=== PATIENT | male | born 1945 | race Caucasian/White ===

== ENCOUNTER 2016-12-26 14:55 | Emergency (ER) | payer OTHER ==
--- NOTE | 2016-12-26 15:55 | DIAGNOSTIC IMAGING REPORT ---
PROCEDURE: XR CHEST 2 VIEW INDICATION: FEVER TECHNIQUE: PA and lateral views. COMPARISON: Chest 05/16/2015 FINDINGS: Lungs are clear. Sternotomy wires. Heart and mediastinum are normal. Thorax is normal. IMPRESSION: 1. Negative chest.
--- NOTE | 2016-12-26 17:18 | ED CLINICAL REPORT ---
Clinical Report - Physicians/Mid Levels [facility] [address] [place] [address] 12/26/2016 14:55 Patient: SULEMAN OLVERA Time Seen: 15:22 Dec 26 2016. Arrived- By private vehicle. Historian- patient. HISTORY OF PRESENT ILLNESS Chief Complaint: COUGH and "FLU". 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 The patient has had a cough. (presents with flulike symptoms over the last 5 days, recently prescribed Tamiflu, as his was seen in the emergency department, was diagnosed with the flu. Patient is a history of Parkinson's, currently off medications. 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 REVIEW OF SYSTEMS No headache or diarrhea. All systems otherwise negative, except as recorded above. PAST HISTORY Problems: Sick Contact. Fractured Phalanx (Toe). Laceration. Vasovagal Syncope. Fall. Arthritis. Parkinson's Disease. Diabetes Mellitus. Additional Surgeries: Cholecystectomy. Open Heart [10/2016]. Septum surgery. Medications: Tamiflu Oral 75 mg, daily. Losartan Potassium Oral (Tablet 50 mg). Naproxen Oral 250 mg. Simvastatin Oral 80 mg. TraZODone HCl Oral 50 mg. Allopurinol Oral 300 mg. Aspirin Oral (Tablet 325 mg). Citalopram Hydrobromide Oral (Tablet 20 mg). Allergies: Bees. ADDITIONAL NOTES The nursing notes have been reviewed. PHYSICAL EXAM Vital Signs: 12/26/2016 15:13 BP: 131/91. HR: 66. RR: 16. O2 saturation: 100%. Temp: 98.6 F. Appearance: Alert. No acute distress. Eyes: Eyes normal inspection. Neck: Normal inspection. Respiratory: No respiratory distress. Breath sounds normal. No accessory muscle use. Skin: Skin warm. Normal skin color. LABS, X-RAYS, AND EKG Chest X-ray: (IMPRESSION: 1. Negative chest. Electronically Final signed by:Jerry White MD 12/26/2016 3:58:42 PM). Laboratory Tests: CBC w Diff: (BERTRAND: 12/26/2016 16:30) ( MsgRcvd 12/26/2016 16:50) Final results Test Result Flag Units (Reference) WHITE BLOOD COUNT 7.9 K/uL (4.5-11.5) RED BLOOD COUNT 5.31 M/uL (4.50-5.90) HEMOGLOBIN 16.2 gm/dL (13.5-17.5) HEMATOCRIT 48.0 % (41.0-53.0) MEAN CELL VOLUME 90 fL (80-100) MEAN CORPUSCULAR HGB 31 pg (26-34) MEAN CORPUSCULAR HGB CONC 34 g/dL (31-37) RED CELL DISTRIBUTION WIDTH 14.3 % (11.6-14.8) PLATELET COUNT 198 K/uL (150-400) NEUTROPHIL % 64.8 % (50-75) LYMPH % 22.1 L % (25-40) MONO % 9.4 % (3-14) EOSINOPHIL % 3.3 % (0-4) BASOPHIL % 0.4 % (0-2) BMP: (BERTRAND: 12/26/2016 16:30) ( MsgRcvd 12/26/2016 17:00) Final results Test Result Flag Units (Reference) GLUCOSE 204 H mg/dL (70-110) BUN 24 H mg/dL (7-18) CREATININE 1.1 mg/dL (0.6-1.3) Estimated GFR >60 mL/min Estimated GFR- >60 mL/min Note: Persistent reduction over 3 months in eGFR<60 mL/min/1.73 m2 defines CKD. Patients with eGFR values>=60 mL/min/1.73 m2 may also have CKD if evidence ofpersistent proteinuria. Additional information may be foundat www.kidney.org. SODIUM 140 mmol/L (136-145) POTASSIUM 4.4 mmol/L (3.5-5.1) CHLORIDE 103 mmol/L (98-107) CARBON DIOXIDE 28 mmol/L (21-32) CALCIUM 8.8 mg/dL (8.5-10.1) . PROGRESS AND PROCEDURES Course of Care: Patient here in the ER with no fevers, clear chest x-ray, lungs clear. Patient with recent influenza symptoms. Pt to f/u outpatient. NOn septic in the er. Normacardic, afebrile. 12/26/2016 17:19 BP: 114/67. HR: 71. RR: 14. O2 saturation: 99%. Temp: 98.1 F. Patient is stable. Symptoms better. Patient/family counseled. Disposition: Discharged. CLINICAL IMPRESSION Influenza. INSTRUCTIONS Alternate Tylenol (Acetaminophen) and Motrin (Ibuprofen) for fever control. Take according to label instructions. Do not work for seven days. Drink plenty of fluids. (continue taking your medicaiton). Follow-up: Follow up with your doctor Monday. (Electronically signed by Linda Dan P.A.-C 12/26/2016 18:00)
--- NOTE | 2016-12-26 17:18 | ED ORDER SUMMARY ---
..... Patient: SULEMAN OLVERA OrderSheet [facility] VisitID: [id number] [place] [address] 71y, M Registration Date/Time: 12/26/2016 ORDER SHEET Weight: 104.3 kg (stated) Allergies: Bees GENERAL ORDERS: Chest 2V Urgent (15:25 12/26/2016 EKoroleva P.A.-C) (16:00 JBoardley R.N.) CBC w Diff Urgent (16:21 12/26/2016 EKoroleva P.A.-C) (16:32 JBoardley R.N.) BMP Urgent (16:21 12/26/2016 EKoroleva P.A.-C) (16:32 JBoardley R.N.) MEDICATION ORDERS: IV FLUIDS: IV NS : initial bolus 500 mL (1000 mL/hr), then 100 mL/hr for X1 (NOW); Mingo (16:20 12/26/2016 EKoroleva P.A.-C) (Ack 16:21 JBoardley R.N.) (16:33 JBoardley R.N.) ORDER SHEET NOTES: [Electronically signed by Gilbert Wilcox R.N. (17:42 12/26/2016)] [Electronically signed by Linda Dan P.A.-C (17:59 12/26/2016)] [Electronically locked/signed by Gilbert Wilcox R.N. (17:42 12/26/2016)]
--- NOTE | 2016-12-26 17:18 | ED CLINICAL REPORT ---
Clinical Report - Physicians/Mid Levels [facility] [address] [place] [address] 12/26/2016 14:55 Patient: SULEMAN OLVERA Time Seen: 15:22 Dec 26 2016. Arrived- By private vehicle. Historian- patient. HISTORY OF PRESENT ILLNESS Chief Complaint: COUGH and "FLU". 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 The patient has had a cough. (presents with flulike symptoms over the last 5 days, recently prescribed Tamiflu, as his was seen in the emergency department, was diagnosed with the flu. Patient is a history of Parkinson's, currently off medications. 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 REVIEW OF SYSTEMS No headache or diarrhea. All systems otherwise negative, except as recorded above. PAST HISTORY Problems: Sick Contact. Fractured Phalanx (Toe). Laceration. Vasovagal Syncope. Fall. Arthritis. Parkinson's Disease. Diabetes Mellitus. Additional Surgeries: Cholecystectomy. Open Heart [10/2016]. Septum surgery. Medications: Tamiflu Oral 75 mg, daily. Losartan Potassium Oral (Tablet 50 mg). Naproxen Oral 250 mg. Simvastatin Oral 80 mg. TraZODone HCl Oral 50 mg. Allopurinol Oral 300 mg. Aspirin Oral (Tablet 325 mg). Citalopram Hydrobromide Oral (Tablet 20 mg). Allergies: Bees. ADDITIONAL NOTES The nursing notes have been reviewed. PHYSICAL EXAM Vital Signs: 12/26/2016 15:13 BP: 131/91. HR: 66. RR: 16. O2 saturation: 100%. Temp: 98.6 F. Appearance: Alert. No acute distress. Eyes: Eyes normal inspection. Neck: Normal inspection. Respiratory: No respiratory distress. Breath sounds normal. No accessory muscle use. Skin: Skin warm. Normal skin color. LABS, X-RAYS, AND EKG Chest X-ray: (IMPRESSION: 1. Negative chest. Electronically Final signed by:Jerry White MD 12/26/2016 3:58:42 PM). Laboratory Tests: CBC w Diff: (BERTRAND: 12/26/2016 16:30) ( MsgRcvd 12/26/2016 16:50) Final results Test Result Flag Units (Reference) WHITE BLOOD COUNT 7.9 K/uL (4.5-11.5) RED BLOOD COUNT 5.31 M/uL (4.50-5.90) HEMOGLOBIN 16.2 gm/dL (13.5-17.5) HEMATOCRIT 48.0 % (41.0-53.0) MEAN CELL VOLUME 90 fL (80-100) MEAN CORPUSCULAR HGB 31 pg (26-34) MEAN CORPUSCULAR HGB CONC 34 g/dL (31-37) RED CELL DISTRIBUTION WIDTH 14.3 % (11.6-14.8) PLATELET COUNT 198 K/uL (150-400) NEUTROPHIL % 64.8 % (50-75) LYMPH % 22.1 L % (25-40) MONO % 9.4 % (3-14) EOSINOPHIL % 3.3 % (0-4) BASOPHIL % 0.4 % (0-2) BMP: (BERTRAND: 12/26/2016 16:30) ( MsgRcvd 12/26/2016 17:00) Final results Test Result Flag Units (Reference) GLUCOSE 204 H mg/dL (70-110) BUN 24 H mg/dL (7-18) CREATININE 1.1 mg/dL (0.6-1.3) Estimated GFR >60 mL/min Estimated GFR- >60 mL/min Note: Persistent reduction over 3 months in eGFR<60 mL/min/1.73 m2 defines CKD. Patients with eGFR values>=60 mL/min/1.73 m2 may also have CKD if evidence ofpersistent proteinuria. Additional information may be foundat www.kidney.org. SODIUM 140 mmol/L (136-145) POTASSIUM 4.4 mmol/L (3.5-5.1) CHLORIDE 103 mmol/L (98-107) CARBON DIOXIDE 28 mmol/L (21-32) CALCIUM 8.8 mg/dL (8.5-10.1) . PROGRESS AND PROCEDURES Course of Care: Patient here in the ER with no fevers, clear chest x-ray, lungs clear. Patient with recent influenza symptoms. Pt to f/u outpatient. NOn septic in the er. Normacardic, afebrile. 12/26/2016 17:19 BP: 114/67. HR: 71. RR: 14. O2 saturation: 99%. Temp: 98.1 F. Patient is stable. Symptoms better. Patient/family counseled. Disposition: Discharged. CLINICAL IMPRESSION Influenza. INSTRUCTIONS Alternate Tylenol (Acetaminophen) and Motrin (Ibuprofen) for fever control. Take according to label instructions. Do not work for seven days. Drink plenty of fluids. (continue taking your medicaiton). Follow-up: Follow up with your doctor Monday. (Electronically signed by Linda Dan P.A.-C 12/26/2016 18:00)
--- NOTE | 2016-12-26 17:18 | ED ORDER SUMMARY ---
..... Patient: SULEMAN OLVERA OrderSheet [facility] VisitID: [id number] [place] [address] 71y, M Registration Date/Time: 12/26/2016 ORDER SHEET Weight: 104.3 kg (stated) Allergies: Bees GENERAL ORDERS: Chest 2V Urgent (15:25 12/26/2016 EKoroleva P.A.-C) (16:00 JBoardley R.N.) CBC w Diff Urgent (16:21 12/26/2016 EKoroleva P.A.-C) (16:32 JBoardley R.N.) BMP Urgent (16:21 12/26/2016 EKoroleva P.A.-C) (16:32 JBoardley R.N.) MEDICATION ORDERS: IV FLUIDS: IV NS : initial bolus 500 mL (1000 mL/hr), then 100 mL/hr for X1 (NOW); Mingo (16:20 12/26/2016 EKoroleva P.A.-C) (Ack 16:21 JBoardley R.N.) (16:33 JBoardley R.N.) ORDER SHEET NOTES: [Electronically signed by Gilbert Wilcox R.N. (17:42 12/26/2016)] [Electronically signed by Linda Dan P.A.-C (17:59 12/26/2016)] [Electronically locked/signed by Gilbert Wilcox R.N. (17:42 12/26/2016)]
--- NOTE | 2016-12-26 17:18 | ED NURSING NOTES ---
Clinical Report - Nurs[facility] [address] [place] [address] 12/26/2016 14:55 Patient: SULEMAN OLVERA TRIAGE Triage time 15:14. Acuity: LEVEL 4. Chief Complaint: "FLU" and COUGH and WHEEZING. 15:14 12/26/16. 15:14 12/26/16. SEPSIS SCREEN: Sepsis Screen. Negative (no infection suspected/documented). --15:24 Gilbert Wilcox R.N. 15:13 12/26/16. BP: 131/91. HR: 66. RR: 16. O2 saturation: 100% on room air. Temp: 98.6 F (oral). --15:24 Gilbert Wilcox R.N. Weight: 104.3 kg stated. Height/Length: 68 inches Per Patient. BMI: 35. --15:13 Gilbert Wilcox R.N. Medications Allopurinol Oral 300 mg, daily. Aspirin Oral (Tablet 325 mg). Citalopram Hydrobromide Oral (Tablet 20 mg). --15:17 Gilbert Wilcox R.N. Losartan Potassium Oral (Tablet 50 mg). Naproxen Oral 250 mg. TraZODone HCl Oral 50 mg. --15:17 Gilbert Wilcox R.N. Tamiflu Oral 75 mg, daily. --15:18 Gilbert Wilcox R.N. Gabapentin Oral. --15:22 Gilbert Wilcox R.N. Statins Support Oral. --15:25 Gilbert Wilcox R.N. The following entry was struck by Gilbert Wilcox R.N., 15:23 (12/26/16) Reason - other. <<STRICKEN ENTRY-- Simvastatin Oral 80 mg. --15:17 Gilbert Wilcox R.N. --END STRIKE>> The following entry was struck and corrected by Gilbert Wilcox R.N., 15:22 (12/26/16) Reason for correction - other(correction). <<STRICKEN ENTRY-- Allopurinol Oral 300 mg. --15:17 Gilbert Wilcox R.N. --END STRIKE>>. Medication/allergy information source: the patient. --15:24 Gilbert Wilcox R.N. Allergies Bees. --15:17 Gilbert Wilcox R.N. History Arrived by private vehicle. Historian: patient. Primary physician ([facility] in [place]). 15:14 12/26/16. Onset. (1 week ago). 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 PAST MEDICAL HX: Immunizations: up-to-date. SOCIAL HX: Never smoker. No alcohol use or drug use. He has had contact with a sick spouse. FALL RISK ASSESSMENT: Fall risk assessment completed. No fall risk identified. NUTRITIONAL RISK ASSESSMENT: The nutritional risk assessment revealed no deficiencies. FUNCTIONAL ASSESSMENT: Functional assessment: no impairments noted. LEARNING NEEDS ASSESSMENT: The learning needs assessment revealed no barriers. SKIN INTEGRITY ASSESSMENT: Skin integrity risk assessment completed. No skin integrity risk identified. --15:24 Gilbert Wilcox R.N. PROBLEMS: Fractured Phalanx (Toe). Laceration. Vasovagal Syncope. Fall. Arthritis. Parkinson's Disease. Diabetes Mellitus. --15:17 Gilbert Wilcox R.N. Myocardial Infarction. --15:23 Gilbert Wilcox R.N. ADDITIONAL SURGERIES: Cholecystectomy. Septum surgery. --15:18 Gilbert Wilcox R.N. Open Heart [10/2015]. --16:14 Gilbert Wilcox R.N. The following entry was struck by Gilbert Wilcox R.N., 16:14 <<STRICKEN ENTRY-- Open Heart [10/2016]. --15:18 Gilbert Wilcox R.N. --END STRIKE>>. Assessment 15:14 12/26/16. --15:24 Gilbert Wilcox R.N. Interventions 15:14 12/26/16. 15:14 12/26/16. ID and allergy band on patient. Precautions initiated (pt masked). To treatment room. --15:24 Gilbert Wilcox R.N. PHYSICAL ASSESSMENT 15:16 12/26/16. Ambulatory to room. GENERAL / NEURO / PSYCH: Alert. Oriented X 4. RESPIRATORY: Respirations not labored. CVS: Capillary refill less than 2 seconds. SKIN: Skin is warm and dry. --15:16 Gilbert Wilcox R.N. 15:19 12/26/16. RESPIRATORY: Expiratory wheezes present. --15:19 Gilbert Wilcox R.N. NURSING PROGRESS NOTES 15:16 12/26/16. The plan of care for this patient has been created. Pulse oximeter applied. Patient gowned. Head of bed elevated. Two patient identifiers checked. Call light placed in reach. Side rails up x 2. Bed placed in lowest position. Brakes of bed on. Brakes of chair on. --15:16 Gilbert Wilcox R.N. 15:16 12/26/16. Patient ready for evaluation- chart flagged and notification provided. --15:16 Gilbert Wilcox R.N. 15:33 12/26/16. Patient transported to radiology by stretcher with tech. --15:34 Aranza Tejada 16:12/26/16. ( Chest x-ray completed). --16:01 Gilbert Wilcox R.N. 16:13 12/26/16. BP: 132/89. HR: 79. RR: 12. O2 saturation: 100% on room air. --16:13 Gilbert Wilcox R.N. 16:13 12/26/16. --16:13 Gilbert Wilcox R.N. 16:28 12/26/2016 Site #1 started via IV in the right hand with an 20g angiocath, with aseptic technique and good blood return; one attempt. Blood drawn: rainbow set. Labeled in the presence of the patient and sent to the lab. Saline lock flushed with 10 mL saline. --16:33 Gilbert Wilcox R.N. 16:33 12/26/2016 Started bag #1 500 mL IV Fluids IV NS (Saline); at 500 mL/hr over 1 hour(s) via site #1. Allergies verified and confirmed 5 rights. IV patency established. IV site checked: no pain, redness, or swelling. IV flushed thoroughly pre- and post-medication administration. Completed per protocol. --16:33 Gilbert Wilcox R.N. 17:14 12/26/2016 IV Fluids IV NS Discontinued: bag #1 infused. Total amount infused: 500 mL. IV patency established. IV site checked: no pain, redness, or swelling. IV flushed thoroughly. --17:20 Gilbert Wilcox R.N. DISPOSITION / DISCHARGE 17:19 12/26/2016 Site #1 removed upon discharge. Catheter intact. --17:19 Gilbert Wilcox R.N. 17:20 12/26/16. Condition at departure: improved. The goals identified in the patient's plan of care were met. No learning barriers present. Discharge instructions provided and reviewed with the patient. Reviewed warnings. Reviewed medication(s). Treatments reviewed. FALL RISK ASSESSMENT: Fall risk assessment completed. No fall risk identified. --17:20 Gilbert Wilcox R.N. 17:19 12/26/16. BP: 114/67. HR: 71. RR: 14. O2 saturation: 99% on room air. Temp: 98.1 F (oral). --17:20 Gilbert Wilcox R.N. 17:20 12/26/16. Patient verbalized understanding. Written instructions provided in Belgian. The patient was discharged by the physician mental health assistant. He was discharged home. He left the Emergency Department ambulatory. Patient driving. --17:20 Gilbert Wilcox R.N. 17:20 12/26/16. Departure time: 17:20. --17:20 Gilbert Wilcox R.N. Locked/Released at 12/26/2016 17:42 by Gilbert Wilcox R.N.
--- NOTE | 2016-12-26 17:18 | ED NURSING NOTES ---
Clinical Report - Nurses [facility] [address] [place] [address] 12/26/2016 14:55 Patient: SULEMAN OLVERA TRIAGE Triage time 15:14. Acuity: LEVEL 4. Chief Complaint: "FLU" and COUGH and WHEEZING. 15:14 12/26/16. 15:14 12/26/16. SEPSIS SCREEN: Sepsis Screen. Negative (no infection suspected/documented). --15:24 Gilbert Wilcox R.N. 15:13 12/26/16. BP: 131/91. HR: 66. RR: 16. O2 saturation: 100% on room air. Temp: 98.6 F (oral). --15:24 Gilbert Wilcox R.N. Weight: 104.3 kg stated. Height/Length: 68 inches Per Patient. BMI: 35. --15:13 Gilbert Wilcox R.N. Medications Allopurinol Oral 300 mg, daily. Aspirin Oral (Tablet 325 mg). Citalopram Hydrobromide Oral (Tablet 20 mg). --15:17 Gilbert Wilcox R.N. Losartan Potassium Oral (Tablet 50 mg). Naproxen Oral 250 mg. TraZODone HCl Oral 50 mg. --15:17 Gilbert Wilcox R.N. Tamiflu Oral 75 mg, daily. --15:18 Gilbert Wilcox R.N. Gabapentin Oral. --15:22 Gilbert Wilcox R.N. Statins Support Oral. --15:25 Gilbert Wilcox R.N. The following entry was struck by Gilbert Wilcox R.N., 15:23 (12/26/16) Reason - other. <<STRICKEN ENTRY-- Simvastatin Oral 80 mg. --15:17 Gilbert Wilcox R.N. --END STRIKE>> The following entry was struck and corrected by Gilbert Wilcox R.N., 15:22 (12/26/16) Reason for correction - other(correction). <<STRICKEN ENTRY-- Allopurinol Oral 300 mg. --15:17 Gilbert Wilcox R.N. --END STRIKE>>. Medication/allergy information source: the patient. --15:24 Gilbert Wilcox R.N. Allergies Bees. --15:17 Gilbert Wilcox R.N. History Arrived by private vehicle. Historian: patient. Primary physician ([facility] in [place]). 15:14 12/26/16. Onset. (1 week ago). 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 PAST MEDICAL HX: Immunizations: up-to-date. SOCIAL HX: Never smoker. No alcohol use or drug use. He has had contact with a sick spouse. FALL RISK ASSESSMENT: Fall risk assessment completed. No fall risk identified. NUTRITIONAL RISK ASSESSMENT: The nutritional risk assessment revealed no deficiencies. FUNCTIONAL ASSESSMENT: Functional assessment: no impairments noted. LEARNING NEEDS ASSESSMENT: The learning needs assessment revealed no barriers. SKIN INTEGRITY ASSESSMENT: Skin integrity risk assessment completed. No skin integrity risk identified. --15:24 Gilbert Wilcox R.N. PROBLEMS: Fractured Phalanx (Toe). Laceration. Vasovagal Syncope. Fall. Arthritis. Parkinson's Disease. Diabetes Mellitus. --15:17 Gilbert Wilcox R.N. Myocardial Infarction. --15:23 Gilbert Wilcox R.N. ADDITIONAL SURGERIES: Cholecystectomy. Septum surgery. --15:18 Gilbert Wilcox R.N. Open Heart [10/2015]. --16:14 Gilbert Wilcox R.N. The following entry was struck by Gilbert Wilcox R.N., 16:14 <<STRICKEN ENTRY-- Open Heart [10/2016]. --15:18 Gilbert Wilcox R.N. --END STRIKE>>. Assessment 15:14 12/26/16. --15:24 Gilbert Wilcox R.N. Interventions 15:14 12/26/16. 15:14 12/26/16. ID and allergy band on patient. Precautions initiated (pt masked). To treatment room. --15:24 Gilbert Wilcox R.N. PHYSICAL ASSESSMENT 15:16 12/26/16. Ambulatory to room. GENERAL / NEURO / PSYCH: Alert. Oriented X 4. RESPIRATORY: Respirations not labored. CVS: Capillary refill less than 2 seconds. SKIN: Skin is warm and dry. --15:16 Gilbert Wilcox R.N. 15:19 12/26/16. RESPIRATORY: Expiratory wheezes present. --15:19 Gilbert Wilcox R.N. NURSING PROGRESS NOTES 15:16 12/26/16. The plan of care for this patient has been created. Pulse oximeter applied. Patient gowned. Head of bed elevated. Two patient identifiers checked. Call light placed in reach. Side rails up x 2. Bed placed in lowest position. Brakes of bed on. Brakes of chair on. --15:16 Gilbert Wilcox R.N. 15:16 12/26/16. Patient ready for evaluation- chart flagged and notification provided. --15:16 Gilbert Wilcox R.N. 15:33 12/26/16. Patient transported to radiology by stretcher with tech. --15:34 Aranza Tejada 16:12/26/16. ( Chest x-ray completed). --16:01 Gilbert Wilcox R.N. 16:13 12/26/16. BP: 132/89. HR: 79. RR: 12. O2 saturation: 100% on room air. --16:13 Gilbert Wilcox R.N. 16:13 12/26/16. --16:13 Gilbert Wilcox R.N. 16:28 12/26/2016 Site #1 started via IV in the right hand with an 20g angiocath, with aseptic technique and good blood return; one attempt. Blood drawn: rainbow set. Labeled in the presence of the patient and sent to the lab. Saline lock flushed with 10 mL saline. --16:33 Gilbert Wilcox R.N. 16:33 12/26/2016 Started bag #1 500 mL IV Fluids IV NS (Saline); at 500 mL/hr over 1 hour(s) via site #1. Allergies verified and confirmed 5 rights. IV patency established. IV site checked: no pain, redness, or swelling. IV flushed thoroughly pre- and post-medication administration. Completed per protocol. --16:33 Gilbert Wilcox R.N. 17:14 12/26/2016 IV Fluids IV NS Discontinued: bag #1 infused. Total amount infused: 500 mL. IV patency established. IV site checked: no pain, redness, or swelling. IV flushed thoroughly. --17:20 Gilbert Wilcox R.N. DISPOSITION / DISCHARGE 17:19 12/26/2016 Site #1 removed upon discharge. Catheter intact. --17:19 Gilbert Wilcox R.N. 17:20 12/26/16. Condition at departure: improved. The goals identified in the patient's plan of care were met. No learning barriers present. Discharge instructions provided and reviewed with the patient. Reviewed warnings. Reviewed medication(s). Treatments reviewed. FALL RISK ASSESSMENT: Fall risk assessment completed. No fall risk identified. --17:20 Gilbert Wilcox R.N. 17:19 12/26/16. BP: 114/67. HR: 71. RR: 14. O2 saturation: 99% on room air. Temp: 98.1 F (oral). --17:20 Gilbert Wilcox R.N. 17:20 12/26/16. Patient verbalized understanding. Written instructions provided in Puerto Rican. The patient was discharged by the physician metal forger's assistant. He was discharged home. He left the Emergency Department ambulatory. Patient driving. --17:20 Gilbert Wilcox R.N. 17:20 12/26/16. Departure time: 17:20. --17:20 Gilbert Wilcox R.N. Locked/Released at 12/26/2016 17:42 by Gilbert Wilcox R.N.
--- NOTE | 2016-12-26 18:00 | ED MAR SUMMARY ---
..... Medication Administration Record [facility] [address] [place] [address] Patient: SULEMAN OLVERA Visit ID: [id number] 71y, M Weight: 104.3 kg Height/Length: 68 in BMI: 35 ALLERGIES: Bees Start 16:33 12/26/2016 Gilbert Wilcox R.N., Stop 17:14 12/26/2016 Gilbert Wilcox R.N. Medication Administered: IV NS (SALINE), Dose: IV Fluids over 1 hour(s), Rate: 500 mL/hr, Dispensed: 500 mL bag, Site: #1 right hand. Medication Ordered: IV NS : initial bolus 500 mL (1000 mL/hr), then 100 mL/hr for X1 (NOW); Mingo.
--- NOTE | 2016-12-26 18:00 | ED MED RECONCILIATION SUMMARY ---
Patient: SULEMAN OLVERA Medication Reconciliation Report [facility] VisitID: [id number] [address] [place] [address] 71y, M Registration Date/Time: 12/26/2016 Weight: 104.3 kg Height/Length: 68 in. BMI: 35.0 ALLERGIES: Bees The patient's Home Medications are listed below: THE FOLLOWING MEDICATIONS NEED TO BE RECONCILED: Allopurinol Oral 300 mg, daily Aspirin Oral (325 mg) Citalopram Hydrobromide Oral (20 mg) Gabapentin Oral Losartan Potassium Oral (50 mg) Naproxen Oral 250 mg Statins Support Oral Tamiflu Oral 75 mg, daily TraZODone HCl Oral 50 mg The source(s) of the original Home Medication information: patient The following Medications were given to the patient in the Emergency Department: IV NS IV Fluids bolus 0, then 500 mL/hr, administered: 12/26/2016 4:33:00 PM The following Medications were prescribed to the patient: None.
--- NOTE | 2016-12-26 18:00 | ED MED RECONCILIATION SUMMARY ---
Patient: SULEMAN OLVERA Medication Reconciliation Report [facility] VisitID: [id number] [address] [place] [address] 71y, M Registration Date/Time: 12/26/2016 Weight: 104.3 kg Height/Length: 68 in. BMI: 35.0 ALLERGIES: Bees The patient's Home Medications are listed below: THE FOLLOWING MEDICATIONS NEED TO BE RECONCILED: Allopurinol Oral 300 mg, daily Aspirin Oral (325 mg) Citalopram Hydrobromide Oral (20 mg) Gabapentin Oral Losartan Potassium Oral (50 mg) Naproxen Oral 250 mg Statins Support Oral Tamiflu Oral 75 mg, daily TraZODone HCl Oral 50 mg The source(s) of the original Home Medication information: patient The following Medications were given to the patient in the Emergency Department: IV NS IV Fluids bolus 0, then 500 mL/hr, administered: 12/26/2016 4:33:00 PM The following Medications were prescribed to the patient: None.
--- NOTE | 2016-12-26 18:00 | ED MAR SUMMARY ---
..... Medication Administration Record [facility] [address] [place] [address] Patient: SULEMAN OLVERA Visit ID: [id number] 71y, M Weight: 104.3 kg Height/Length: 68 in BMI: 35 ALLERGIES: Bees Start 16:33 12/26/2016 Gilbert Wilcox R.N., Stop 17:14 12/26/2016 Gilbert Wilcox R.N. Medication Administered: IV NS (SALINE), Dose: IV Fluids over 1 hour(s), Rate: 500 mL/hr, Dispensed: 500 mL bag, Site: #1 right hand. Medication Ordered: IV NS : initial bolus 500 mL (1000 mL/hr), then 100 mL/hr for X1 (NOW); [place].
--- NOTE | 2016-12-26 18:00 | ED DISCHARGE INSTRUCTIONS ---
Patient: SULEMAN OLVERA General Instructions [facility] VisitID: [id number] [place] [address] 71y, M Registration Date/Time: 12/26/2016 Influenza. INSTRUCTIONS Alternate Tylenol (Acetaminophen) and Motrin (Ibuprofen) for fever control. Take according to label instructions. Do not work for seven days. Drink plenty of fluids. (continue taking your medicaiton). Follow-up: Follow up with your doctor Monday. ADDITIONAL INFORMATION Influenza (Adult) Influenza, also called the flu, is a viral illness that affects the air passages of the lungs. It differs from the common cold. It is highly contagious. It may be spread through the air by coughing and sneezing or by direct contact (touching the sick person and then touching your own eyes, nose or mouth). Illness starts 1-3 days after exposure and lasts for 1-2 weeks. Antibiotics are usually not needed unless a complication appears (ear or sinus infection or pneumonia). Symptoms may be mild or severe and can include extreme tiredness (wanting to stay in bed all day), chills, fevers, muscle aching, soreness with eye movement, headache, and a dry, hacking cough. Home Care: Avoid exposure to cigarette smoke (yours or others). Tylenol or ibuprofen (Advil) will help fever, muscle aching, and headache. To avoid risk of liver injury, aspirin should not be used in children and teenagers under 18 with this illness. Nausea and loss of appetite are common. A light diet is recommended. Avoid dehydration by drinking 6-8 glasses of fluids per day (water, sport drinks like Gatorade, soft drinks without caffeine, juices, tea, soup, etc.). Extra fluids will also help loosen secretions in the nose and lungs. Okic-[id number] cold medicines will not shorten the duration of the illness but may be helpful for the following symptoms: cough (Robitussin DM); sore throat (Chloraseptic lozenges or spray); nasal and sinus congestion (Actifed or Sudafed). [NOTE: Do not use decongestants if you have high blood pressure.] Stay home until your fever has been gone for at least 24 hours (without the use of fever-reducing medications such as ibuprofen). Follow Up with your doctor or as directed by our staff if you are not improving over the next week. Note: If you are age 65 or older, or if you have chronic asthma or COPD, we recommend a pneumococcal vaccinationevery five years. All adults shouldreceive a yearly influenza vaccination every . Ask your doctor about this. Get Prompt Medical Attention if any of the following occur: Cough with lots of colored sputum (mucus) or blood in your sputum Chest pain, shortness of breath, wheezing, or difficulty breathing Severe headache, face, neck or ear pain New rash Fever of 100.4F (38C) oral or higher, not better with fever medication Confusion, behavior change or seizure Severe weakness or dizziness You have been given the following additional information: Influenza (Adult) Do not work for seven days. (Electronically signed by Linda Dan P.A.-C 12/26/2016 18:00)
== END 2016-12-26 17:20 | disposition home or self-care (01) ==
LOC: ED SRH 14:55
DX: J11.1 Influenza due to unidentified influenza virus with other respiratory manifestations (principal); E11.9 Type 2 diabetes mellitus without complications; Z91.030 Bee allergy status; Z79.899 Other long term (current) drug therapy; Z79.82 Long term (current) use of aspirin
CPT/HCPCS: 90047; 90074; 95059